=== PATIENT | male | born 1930 | race Caucasian/White ===

== ENCOUNTER 2018-08-30 06:05 | Inpatient (IN) ==
[~2018-08-30 06:05] MED LIST: ceFAZolin 1,000 MG, Sodium Chloride IRRigation 1,000 ML IR ONE
[2018-08-30] MEDS ORDERED: Ringers Solution, Lactated 1,000 ML IVC SCH (06:45)
[2018-08-30] MEDS ORDERED: LIDOCAINE 1% PF 2 ML AMPUL ONE (06:56)
[2018-08-30] MEDS ORDERED: Dexamethasone 4 MG/ML VIAL ONE ×2 (07:10→10:25)
[2018-08-30] MEDS ORDERED: *HR* Succinylcholine 200 MG/10 ML VIAL IVP ONE (07:10)
[2018-08-30] MEDS ORDERED: *HR* Rocuronium Bromide 50 MG/5 ML VIAL ONE (07:10)
[2018-08-30] MEDS ORDERED: Ondansetron 4 MG/2 ML VIAL ONE (07:10)
[2018-08-30] MEDS ORDERED: Lidocaine -MPF 2% 2 ML VIAL ONE (07:10)
[2018-08-30] MEDS ORDERED: *HR* Phenylephrine 10 MG/ML VIAL ONE (07:14)
[2018-08-30] MEDS ORDERED: *HR* Propofol 200 MG/20 ML VIAL IVP ONE (07:14)
[2018-08-30] MEDS ORDERED: *HR* Remifentanil 2 MG VIAL IVP ONE (07:14)
[2018-08-30] MEDS ORDERED: *HR* FentaNYL (PF) 100 MCG/2 ML VIAL ONE (07:14)
[2018-08-30] MEDS ORDERED: CeFAZolin Syr 2,000MG/20 ML 2,000 MG/20 ML SYRINGE IVPB ONE (07:15)
[2018-08-30] MEDS ORDERED: Isovue-300 150 ML INFUS..BTL IV ONE (07:20)
[2018-08-30] MEDS ORDERED: Heparin 1,000 UNITS/500 mL 2,000 ML ONE (07:20)
--- NOTE | 2018-08-30 07:27 | History & Physical Report ---
Date of Encounter: 08/30/18 Time of Encounter: 07:15 24 Hour HP Update - Instructions Instructions: If the History and Physical is less than 30 days old and was completed prior to A.M. admission and or procedure and has NOT been updated on calendar day of procedure please complete this update prior to performing procedure. - Update Patient reports changes in Medical Condition: No Changes in examination, assessment, or condition: No Changes in Medication: No Preop tests/diagnostics Reviewed: Yes Surgery Remains Indicated: Yes Consent for Planned Operative Procedure(s) Verified: Yes - Pre-Operative Checklist Preoperative Checklist Indicated: Yes Prophylactic Antibiotic Ordered: Yes Home Medications Include Beta Ileana: No Beta Ileana Taken Today (Day of Surgery): No Beta Ileana Taken Yesterday (Day Prior to Surgery): No Is VTE Prophylaxis Indicated?: Yes
[2018-08-30] MEDS ORDERED: Heparin 1,000 UNITS/500 mL 500 ML ONE (07:29)
[2018-08-30] MEDS ORDERED: *HR* Norepinephrine 4 MG/4 ML VIAL IVC ONE ×2 (07:45→07:47)
--- NOTE | 2018-08-30 07:51 | Anesthesia Evaluation PreOp ---
Date of Encounter: 08/30/18 Time of Encounter: 07:49 - Past History Planned Operation: ENDOVASCULAR AAA REPAIR Cardiac History: HTN, Hyperlipidemia, Arrhythmia (CHRONIC AFIB, COMPLETE HEART BLOCK, SSS), Cardiac Surgery (2011: AVR, CABG X3), Pacemaker/ICD (MEDTRONIC), Other PROGRAMMABLE LOGIC CONTROLLER ASSEMBLER History: Denies Any Significant HX Other Medical History: Renal (CKD, SINGLE KIDNEY, POST NEPHRECTOMY), Diabetes Type II, Thyroid Anesthesia History: No Prior Anesthetic Complications, Past Anesthesia Alcohol Use: none Drug use: none Medications and Allergies Levothyroxine Sodium [Tirosint] 125 mcg PO DAILY 03/16/16 [History] Warfarin [Coumadin] 3 mg PO TUTHSA 03/16/16 [History] Warfarin [Coumadin] 4 mg PO SUMOWEFR 03/16/16 [History] Ascorbic Acid [Vitamin C] 1 tab PO DAILY #30 tablet 04/08/16 [Rx] Cholecalciferol (D-3) [Vitamin D] 1,000 unit PO DAILY 06/14/17 [History] Multivitamin [Multivitamins] 1 each PO DAILY 06/14/17 [History] Ferrous Sulfate [Iron] 325 mg PO QPM 06/10/18 [History] Gabapentin [Neurontin] 100 mg PO HS 06/10/18 [History] Glimepiride [Amaryl] 1 mg PO QPM 06/10/18 [History] Acetaminophen [Tylenol] 500 mg PO Q6HR #42 tablet 06/14/18 [Rx] Ciprofloxacin [Cipro] 500 mg PO BID #14 tablet 06/14/18 [Rx] Tramadol HCl [Ultram] 50 mg PO TID PRN 7 Days #21 tab 06/14/18 [Rx] metroNIDAZOLE [Flagyl] 500 mg PO TID 7 Days #21 tablet 06/14/18 [Rx] 3 Allergy/AdvReac Type Severity Reaction Status Date / Time Oxycodone [From Percocet] Allergy Intermediate Itching Verified 08/30/18 07:36 Penicillins Allergy Intermediate Itching Verified 08/30/18 07:36 Sulfa (Sulfonamide Allergy Intermediate Itching Verified 08/30/18 07:36 Antibiotics) acetaminophen [From Percocet] Allergy See Verified 08/30/18 07:36 Comments - Meds/Allergy Pre-op Review Medications Reviewed: Yes (STOPPED COUMADIN 5 DAYS AGO, STARTED LOVENOX 10/8 PM) Allergies Reviewed: Yes Beta Blockers on Current Med List: No (NOT TAKING FOR 3 WEEKS PER BP IS NORMAL) Anesthesia Results - Labs Laboratory Last Values WBC 5.1 K/mcL (4.3-11.1) 08/23/18 11:10 RBC 4.11 M/mcL (4.19-5.50) L 08/23/18 11:10 Hgb 12.9 g/dL (12.9-16.9) 08/23/18 11:10 Hct 39.3 % (37.5-50.1) 08/23/18 11:10 MCV 95.6 fL (83.0-100.0) 08/23/18 11:10 MCH 31.4 pg (28.0-33.3) 08/23/18 11:10 MCHC 32.8 g/dL (31.6-35.5) 08/23/18 11:10 RDW 13.1 % (11.5-14.5) 08/23/18 11:10 Plt Count 187 K/mcL (140-400) 08/23/18 11:10 MPV 10.7 fL (9.4-12.4) 08/23/18 11:10 Immature Gran % 0.4 % (0-4) 08/23/18 11:10 Seg Neutrophils % 65.8 % 08/23/18 11:10 Lymphocytes % 20.5 % 08/23/18 11:10 Monocytes % 10.9 % 08/23/18 11:10 Eosinophils % 1.8 % 08/23/18 11:10 Basophils % 0.6 % 08/23/18 11:10 Neutrophils # 3.4 K/mcL (1.6-8.9) 08/23/18 11:10 Lymphocytes # 1.1 K/mcL (0.6-4.6) 08/23/18 11:10 Monocytes # 0.6 K/mcL (0.0-1.3) 08/23/18 11:10 Eosinophils # 0.1 K/mcL (0.0-0.6) 08/23/18 11:10 Basophils # 0.0 K/mcL (0.0-0.2) 08/23/18 11:10 PT 21.2 Seconds (9.4-12.1) H 08/23/18 11:10 INR 1.9 08/23/18 11:10 APTT 37.9 Seconds (26.0-36.0) H 08/23/18 11:10 Sodium 137 mEq/L (136-145) 08/23/18 11:10 Potassium 5.2 mEq/L (3.5-5.1) H 08/23/18 11:10 Chloride 104 mEq/L (98-107) 08/23/18 11:10 Carbon Dioxide 26 mEq/L (23-29) 08/23/18 11:10 BUN 27 mg/dL (8-23) H 08/23/18 11:10 Creatinine 1.32 mg/dL (0.70-1.30) H 08/23/18 11:10 Est GFR ( Amer) > 60 (> 60) 08/23/18 11:10 Est GFR (Non-Af Amer) 51 (> 60) L 08/23/18 11:10 BUN/Creatinine Ratio 20 (6-26) 08/23/18 11:10 Glucose 370 mg/dL (70-105) H 08/23/18 11:10 Est Mean Plasma Glucose 229 mg/dl 08/23/18 11:10 Hemoglobin A1c 9.6 % (-5.6) H 08/23/18 11:10 Calculated Osmolality 304 (280-300) H 08/23/18 11:10 Calcium 9.4 mg/dL (8.6-10.3) 08/23/18 11:10 Blood Type A POSITIVE 08/23/18 11:10 Antibody Screen NEGATIVE 08/23/18 11:10 Crossmatch See Detail 08/23/18 11:10 - Imaging Additional studies: STRESS TEST 08/11/2018: Perfusion study is negative for ischemia or infarct. Fixed mild mid-basal inferior perfusion defect with nomal wall motion is likely an artifact. Stress LVEF 67%. No ischemic stress ECG findings, ventricular pacing. No abnormal hemodynamic changes during stress test. Anesthesia Exam O2 Sat Height 1.68 m Height 1.68 m Height 1.68 m Weight 62.596 kg Weight 62.596 kg Weight 62.596 kg O2 Sat by Pulse Oximetry 98 O2 Sat by Pulse Oximetry 98 Vital Signs Temp Pulse Resp BP Pulse Ox 97.7 F 98 18 155/69 98 08/30/18 06:32 08/30/18 06:32 08/30/18 06:32 08/30/18 06:32 08/30/18 06:32 NPO (# of Hours): 8 - HEENT Mallampati: I Teeth: Normal Oral Opening: Greater than 3 - PROGRAMMABLE LOGIC CONTROLLER ASSEMBLER LOC: Oriented PROGRAMMABLE LOGIC CONTROLLER ASSEMBLER Motor: Normal RUE, Normal LUE, Normal RLE, Normal LLE, Normal Face - Cardiac Rhythm: Regular - Pulmonary Breath Sounds: bilateral Clear Respiratory Effort: Symmetrical Anesthesia Assess/Plan ASA Score: 4 Modified Florin Scale for Level of Consciousness: Cooperative, oriented, and tranquil Anesthetic Plan: General Autologous Blood: Yes Monitoring Plan: Standard Monitors, A-Line Recovery Plan: PACU Anes Supervising Prov Stmt: Indisys LIST NOT UPDATED THIS VISIT PATIENT'S CHART AND CURRENT MEDICATIONS REVIEWED CURRENT MEDICATIONS: Taking Levothyroxine Sodium 125 MCG Tablet, Si tablet on an empty stomach in the morning Orally Once a day Taking Metoprolol Succinate 50 MG Tablet Extended Release, Sig: Orally Taking Gabapentin 100 MG Capsule, Sig: Orally Three times a day Taking Glimepiride 1 MG Tablet, Si tablet with breakfast or the first main meal of the day Orally Once a day Taking Calcium 500 MG Tablet Chewable, Si tablet Orally Once a day Taking Iron 325 (65 Fe) MG Tablet, Si tablet Orally Once a day Taking Warfarin Sodium 3 MG Tablet, Si tablet Orally as directed Taking Multivitamin Men - Tablet, Sig: Orally daily Taking Terazosin HCl 1 MG Capsule, Si capsule Orally Once a day Taking Atorvastatin Calcium 40 MG Tablet, Si tablet Orally Once a day Taking GlipiZIDE 10 MG Tablet, Si tablet Orally Twice a day Patient informed and consented. Risks, benefits, and alternatives discussed. Patient wishes to proceed.
[2018-08-30] MEDS ORDERED: Lidocaine Jelly 6ml 1 APPL/6 ML JEL.PF.APP ONE (08:40)
[2018-08-30] MEDS ORDERED: *HR* Heparin 5,000 UNIT/ML VIAL ONE ×2 (09:11→10:26)
[2018-08-30] MEDS ORDERED: Acetaminophen IV 1,000 MG/100 ML INFUS..BTL IVPB ONE (10:10)
[2018-08-30] MEDS ORDERED: *HR* HYDROmorphone 2 MG TABLET PO PRN (10:10)
[2018-08-30] MEDS ORDERED: *HR* Promethazine 25 MG/ML VIAL IVP PRN (10:10)
[2018-08-30] MEDS ORDERED: *HR* Labetalol 20 MG/4 ML SYRINGE IVP PRN (10:10)
[2018-08-30] MEDS ORDERED: Ondansetron 4 MG/2 ML VIAL IVP ONE (10:10)
[2018-08-30] MEDS ORDERED: Neostigmine Methylsulfate 3 MG/3 ML SYRINGE ONE (10:53)
--- NOTE | 2018-08-30 11:05 | Operative Note ---
Date of procedure: 08/30/18 Pre-op diagnosis: AAA Post-op diagnosis: same Procedure: EVAR with Medtronic Endurant Stent Graft System Main body placed via right side which is a 28 x 14 x 103 mm device. The patient has a right extension limb of 16 x 13 x 93 mm. The left iliac limb is a 16 x 13 x 124 mm Bilateral open femoral exposure Complications: 0 Anesthesia: GETA Surgeon: Khoi Chang Co-Surgeon: En Castro Was there an pastry assistant present: No Estimated blood loss (cc): 150 Specimen: 0 Condition: stable Disposition: PACU Procedure in Detail: History Alcides Delacruz is an 88-year-old white male who has an known abdominal aortic aneurysm. This is been followed as an outpatient. Unfortunately the aneurysm has grown in size. It is increased significantly and now measures 5.6 cm. Potential treatment options were reviewed with the patient including expectant treatment versus elective endovascular therapy. The patient opted to proceed with endovascular therapy and he now comes to the operating room today for treatment of his aneurysm. Procedure After informed consent was obtained the patient was taken to the operating room. General endotracheal anesthesia was established under arterial line pressure monitoring. The abdomen groin and upper thighs were sterilely prepped and draped. A timeout protocol was observed. Bilateral open femoral exposures were then performed. A 2 team surgical approach was necessary for this procedure. The patient required 2 team approach due to his multiple comorbidities including his advanced age. In an attempt to try to reduce his anesthetic time and blood loss at 2 team approach was indicated. After controls obtained of the femoral vessels they were punctured with an 18- gauge needle and a retrograde orientation. A guidewire was then inserted and advanced into the proximal thoracic aorta. On the right side the wire was exchanged over for an Amplatz wire. The marker pigtail catheter was then placed up the left side. An aortogram was performed demonstrating the right renal artery. The patient is status post a left nephrectomy. An endovascular stent graft was selected that measured 28 x 14 x 103 mm. This was deployed via the right side with a suprarenal stent. Careful attention was paid so that the orifice of the right renal artery is not compromised with this device. After the device was deployed to the point that the docking gate was opened the wire was manipulated and with a catheter was then placed into the main body from the left groin. Appropriate positioning was confirmed with the use of a marker pigtail catheter. An angiogram was then performed of the left iliac system. The left limb was 16 x 13 x 124 mm stent graft. This was then deployed. The device was re-moved and a 11-Sinhala sheath was placed. Attention was directed back to the right side. The right sided graft was then deployed to its full extent. The top cap was then reengaged and that was removed. A sheath was then placed into the right groin and an angiogram performed of the right iliac system. After measurements made a right limb was selected that was 16 x 13 x 93 mm. This was then deployed. The carrier device was then removed and then sheath was reinserted. A Reliant balloon was then inserted into the graft from both sides and then was gently inflated so that the stent graft could be fully deployed and opposed to the wall of the vessel. After this was done a marker pigtail catheter was reinserted. A completion aortogram was performed. As demonstrated appropriate position of the stent graft. Preservation of the right renal artery as well as bilateral iliac bifurcations was demonstrated. There was a type II endoleak identified which appeared to be originating from the branches of the internal iliac artery on the right side with retrograde filling into the residual aneurysm sac. With no findings of type I or type III endoleak the sheaths were then removed. The femoral puncture sites were repaired with 6-0 Prolene. After appropriate backbleeding and flushing the clamps removed and pulsatile flow was restored in both lower extremities. Patient had no hemodynamic distress with this maneuver. The wounds were then irrigated. Hemostasis was achieved. Wounds were then closed in layers using absorbable suture. Marcaine was infiltrated into the wounds bilaterally prior to closure for local anesthetic. Dry sterile dressings were applied. The patient was then extubated in the operating room. He was taken from the operating room to the recovery room in stable condition. There were no intraoperative complications.
--- NOTE | 2018-08-30 11:45 | Operative Note ---
Date of procedure: 08/30/18 Pre-op diagnosis: Abdominal aortic aneurysm Post-op diagnosis: same Procedure: 1. Endograft repair of abdominal aortic aneurysm with Medtronic bifurcated modular graft including 1 docking limb on the left and one extension limb on the right. 2. Right femoral vessel exposure for endograft placement. 3. Left femoral vessel exposure for endograft placement. Complications: None Anesthesia: GETA Surgeon: En Castro Co-Surgeon: Khoi Chang Was there an state tested nursing assistant present: No Estimated blood loss (cc): 100 Specimen: None Condition: stable Disposition: PACU Procedure in Detail: Indications: The patient is an 88-year-old male with a 5.6cm abdominal aortic aneurysm. His anatomy was appropriate for endograft repair. Repair was recommended to reduce his risk of rupture. Procedure: The patient was taken to the operating room and placed in supine position on the operating room table. After the induction of general endotracheal anesthesia, she was cleaned and draped in normal sterile fashion. A two surgeon approach was utilized for this procedure in order to minimize anesthetic time and the risks for complications due to the patients comorbid conditions. In addition, a two surgeon approach was used for intraoperative decision making. Oblique incisions were made over both groins sharply. Hemostasis was obtained with electrocautery. Using blunt and sharp and electrocautery dissection, the bilateral common, deep and superficial femoral arteries were dissected circumferentially and surrounded with Vessel loops. At this point, the patient received heparin intravenously and then bilateral femoral punctures with large- bore needles were performed. J wires were advanced into the aorta under fluoroscopic view. The right wire initially would not advance into the aorta. Therefore a amy catheter and glidewire were used. Given the anatomy, the main body was selected to be the right side in this patient. The needles were exchanged for bilateral sheaths and a long Pigtail catheter was advanced over the right wire into the aortic arch. The angiogram revealed that the left iliac vessels were appropriate for endograft placement. The wire was removed and an angiogram was then performed via a pigtail catheter for sizing of the graft. The wire was replaced with a stiff wire. The catheter was removed and repositioned in the suprarenal aorta via the left femoral artery. The main body was inserted over the stiff wire with the contralateral limb being in the ipsilateral position. An aortogram was then performed at the level of the renal artery. The graft was positioned just inferior to the renal arteries and the first 2 segments were deployed. Again an aortogram revealed adequate infrarenal placement. The graft was then further opened to the contralateral limb exposed. A final angiogram was performed confirming adequate infrarenal placement. The suprarenal stent was deployed in the usual fashion. The contralateral limb was then selected with a wire using a guiding catheter. Intragraft placement of the wire was confirmed by placing the pigtail and spinning it freely. An oblique view of the left pelvis was performed with contrast to size the left extension limb. The sheath was removed and exchanged for the appropriate limb, which was advanced under fluoroscopic view and positioned. It was then expanded. The introducer and graft sheath were exchanged for a sheath. The risks of the main body was deployed. The top cap was retrieved. The introducer was removed and exchanged for a sheath. Oblique view of the right pelvis was then performed to determine the extension limb sizing. The appropriate limb was selected and deployed under fluoroscopic view. The introducer and graft sheath was removed and exchanged for a sheath. A Reliant balloon was then advanced into the graft proximal and distal endpoints as well as overlap were expanded with gentle pressure. A flush completion angiogram revealed no evidence of an endoleak. Further imaging of the right femoral vessels revealed no evidience of stenosis. Tension was applied to the Vessel loops in the groins. The sheaths and wires were then removed. The bilateral arteriotomies were repaired with a running 6-0 Prolene. Antibiotic irrigation was infused into the groin. The bilateral groins incisions were closed with 2-0 Vicryl, 3-0 Vicryl and 4-0 Vicryl. Sterile dressings were applied. The patient was then extubated and taken to the recovery room in stable condition. Main body: 28 x 14 x 103 mm Right extension limb: 16 x 13 x 93 mm Left iliac docking limb: 16 x 13 x 124 mm
[2018-08-30] MEDS ORDERED: Ondansetron 4 MG/2 ML VIAL IVP PRN (11:58)
[2018-08-30] MEDS ORDERED: Acetaminophen 325 MG TABLET PO PRN (11:58)
[2018-08-30] MEDS ORDERED: Naloxone 0.4 MG/ML INJ IVP PRN (11:58)
--- NOTE | 2018-08-30 11:58 | Anesthesia Evaluation Post Op ---
Date of Encounter: 08/30/18 Time of Encounter: 11:57 - Discharge PostOp Status: Transfer Patient to floor (Patient's vital signs have been reviewed. Patient is stable postoperatively and has adequately recovered from anesthesia. Patient is determined to have stable airway patency and respiratory function including respiratory rate and oxygen saturation. Patient has a stable heart rate, blood pressure and adequate hydration. Patients mental status is acceptable. Patients temperature is appropriate. Pain and nausea are adequately controlled.)
[2018-08-30] MEDS ORDERED: D5% in Water 1,000 ML IVC PRN (17:13)
[2018-08-30] MEDS ORDERED: Dextrose Gel 15 GM/37.5 ML TUBE PO PRN ×2 (17:13)
[2018-08-30] MEDS ORDERED: *HR* Dextrose 50 % in Water (Syg) 50 ML SYRINGE IVP PRN (17:13)
[2018-08-30] MEDS ORDERED: 0.9 % Sodium Chloride 1,000 ML IVC SCH (18:15)
[2018-08-30] MEDS: Insulin LISPRO 300 UNITS/3 ML VIAL SQ SCH ×2 (18:19→20:27)
[2018-08-30] MEDS ORDERED: 0.9 % Sodium Chloride 1,000 ML ONE (18:25)
[2018-08-31] MEDS: Gabapentin 100 MG CAPSULE PO PRN ×2 (01:21→20:45)
[2018-08-31 06:14] LABS: Basophils % 0.1 %; Eosinophils % 0.4 %; Hematocrit 24.8 % (37.5-50.1); Hemoglobin 8.4 g/dL (12.9-16.9); Immature Granulocytes % 0.3 % (0-4); Lymphocytes # 1.7 K/mcL (0.6-4.6); Lymphocytes % 17.4 %; Mean Corpuscular HGB Conc 33.9 g/dL (31.6-35.5); Mean Corpuscular Hemoglobin 31.7 pg (28.0-33.3); Mean Corpuscular Volume 93.6 fL (83.0-100.0); Mean Platelet Volume 10.7 fL (9.4-12.4); Monocytes # 0.5 K/mcL (0.0-1.3); Monocytes % 5.5 %; Neutrophils # 7.5 K/mcL (1.6-8.9); Platelet Count 152 K/mcL (140-400); Red Blood Count 2.65 M/mcL (4.19-5.50); Red Cell Distribution Width 12.8 % (11.5-14.5); Segmented Neutrophils % 76.3 %
[2018-08-31 06:18] LABS: Calcium 7.9 mg/dL (8.6-10.3); Potassium 4.1 mEq/L (3.5-5.1)
[2018-08-31] MEDS: Multivit/Ca/Min/Fe/FA 1 TAB TABLET PO SCH (07:59)
[2018-08-31] MEDS: Ascorbic Acid 500 MG TABLET PO SCH (07:59)
[2018-08-31] MEDS: Cholecalciferol (D-3) 1,000 UNIT TABLET PO SCH (07:59)
[2018-08-31] MEDS: *HR* HYDROcodone/Acet 5/325 mg TABLET PO PRN ×2 (07:59→16:48)
[2018-08-31] MEDS: Insulin LISPRO 300 UNITS/3 ML VIAL SQ SCH ×4 (08:05→20:41)
--- NOTE | 2018-08-31 11:55 | Physician Discharge Referral ---
ExtendedCare Referral Info Transfer To: F Provider in Charge: Dr. Chang Provider in Charge after Transfer: PCP Institutional Level of Care: Intermediate Expected Duration of Placement: 1-2 weeks Prognosis: Good Aware of Diagnosis: Patient, Family Aware of Prognosis: Patient, Family - Transfer Medications Home Medications: Levothyroxine Sodium [Tirosint] 125 mcg PO DAILY 03/16/16 [History] Cholecalciferol (D-3) [Vitamin D] 1,000 unit PO DAILY 06/14/17 [History] Multivitamin [Multivitamins] 1 each PO DAILY 06/14/17 [History] Ferrous Sulfate [Iron] 325 mg PO QPM 06/10/18 [History] Gabapentin [Neurontin] 100 mg PO HS PRN 06/10/18 [History] Ascorbic Acid [Vitamin C] 250 tab PO DAILY 08/30/18 [History] Atorvastatin Calcium [Lipitor] 40 mg PO DAILY 08/30/18 [History] Enoxaparin [Lovenox] 100 mg SQ DAILY PRN 08/30/18 [History] Metoprolol [Lopressor] 12.5 mg PO BID 08/30/18 [History] Terazosin [Hytrin] 1 mg PO HS 08/30/18 [History] Warfarin [Coumadin] 3 mg PO TUTHSA 08/30/18 [History] Warfarin [Coumadin] 4 mg PO SUMOWEFR 08/30/18 [History] Allergies/Adverse Reactions: 3 Allergy/AdvReac Type Severity Reaction Status Date / Time Oxycodone [From Percocet] Allergy Intermediate Itching Verified 08/30/18 07:36 Penicillins Allergy Intermediate Itching Verified 08/30/18 07:36 Sulfa (Sulfonamide Allergy Intermediate Itching Verified 08/30/18 07:36 Antibiotics) acetaminophen [From Percocet] Allergy See Verified 08/30/18 07:36 Comments - Respiratory Orders Smoking Cessation: Smoking cessation has been advised. For more information, call the [place] Tobacco Quit Line at 5-064-WMDE-NOW. - Ancillary Orders May use pressure relief devices daily prn - Advance Directives Code Status: Full Code - Mobility Orders Ambulate - Rehabiliation Orders Rehab Potential: Good Rehab Orders: Evaluation for Physical Therapy, Evaluation for Occupational Therapy CERTIFICATION: I certify that the transfer of the above named patient to an Extended Care Facility is necessary for the continuing treatment of the diagnosis listed. The above information is true and accurate reflection of patient's current condition. Confidential - Redisclosure prohibited without a patient's written consent.
--- NOTE | 2018-08-31 12:39 | Vascular/[facility] Progress Note ---
Date of Encounter: 08/31/18 Time of Encounter: 12:36 - Assessment and plan (1) AAA (abdominal aortic aneurysm) Current Visit: Yes Status: Chronic Postoperative day #1 following successful endovascular repair of abdominal aortic aneurysm. Patient seemed in medically stable. Atrial fibrillation remains controlled medically. Qualifiers: Presence of rupture: without rupture Qualified Code(s): I71.4 - Abdominal aortic aneurysm, without rupture (2) Hematuria Current Visit: Yes Status: Acute Patient has hematuria following Mclean insertion yesterday for surgery. We will request a urology consultation for recommendation and management. Qualifiers: Hematuria type: gross Qualified Code(s): R31.0 - Gross hematuria (3) A-fib Current Visit: No Status: Chronic Patient has chronic atrial fibrillation. Anticoagulation has been held since last week. Qualifiers: Atrial fibrillation type: chronic Qualified Code(s): I48.2 - Chronic atrial fibrillation - Subjective Interval history: Patient is postoperative day #1 following endovascular repair of abdominal aortic aneurysm. Patient underwent uneventful night. Patient did develop gross hematuria yesterday afternoon following surgery. The patient did have difficulty passing his Mclean catheter and has a history of prostatic hypertrophy as well as hesitancy and nocturia. Because of the history of atrial fibrillation and the need for future resumption of his anticoagulation will request urology to see the patient today for recommendations regarding Mclean catheter management. Vital Signs, Last 4 Hours Temp Pulse Resp BP Pulse Ox 08/31/18 12:02 98.6 F 80 18 98/46 95 - Physical Examination General: Present: Conversant, No Apparent Distress Neck: Absent: JVD Cardiac: Present: Irregular Rhythm Lungs: Present: Normal Breath Sounds Neuro: Present: Alert and responsive, No focal deficits noted Vascular: Present: Normal capillary refill, Surgical incisions (Bilateral groin incision dressings are clean and dry.) Abdomen: Present: Soft, Non-tender. Absent: Masses Skin: Present: No rashes noted on visualized skin Results 08/31/18 05:30 08/31/18 05:30 Lab Results, Last 24 hours 08/31/18 08/31/18 05:30 05:30 WBC 9.9 Hgb 8.4 L Hct 24.8 L Plt Count 152 Sodium 136 Potassium 4.1 Chloride 108 H Carbon Dioxide 23 BUN 30 H Creatinine 1.49 H Glucose 270 H Calcium 7.9 L Consult Discharge Plan - Plan [facility]Primary Care Provider[facility] - 09/09/18 11:00 am Khoi Chang MD [Partnered Physician] - 09/28/18 1:30 pm
[2018-08-31] MEDS ORDERED: Lidocaine Jelly 6ml 1 APPL/6 ML JEL.PF.APP MM ONE (12:41)
--- NOTE | 2018-08-31 13:31 | Urology - Consult Note ---
<Kandy Forte N - Last Filed: 08/31/18 13:27> Date of Encounter: 08/31/18 Time of Encounter: 12:30 - Assessment and Plan (1) Hematuria Current Visit: Yes Status: Acute Assessment and plan: Patient is an 88-year-old male who presents with history of gross hematuria following traumatic catheter placement and anticoagulation. Patient is one day status post abdominal aortic aneurysm repair. A 22-[place]orese 3-way catheter was placed without difficulty. Continuous bladder irrigation was initiated. Hand irrigation with clot evacuation was performed at bedside. At the conclusion of irrigation, urine was noted to be transparent pink lemonade and draining sufficiently into bedside bag. Holding anticoagulation would be best for clearing the bladder if the patient is able to do so. Urology will continue to follow. Qualifiers: Hematuria type: gross Qualified Code(s): R31.0 - Gross hematuria Urology CN:HPI Consult date: 08/31/18 Reason for consult Urology: Gross Hematuria History of present illness: Patient is an 88-year-old male who presents one day postoperatively from an abdominal aortic aneurysm repair with gross hematuria. Patient states he knows he has an enlarged prostate. Grossly bloody urine was noted shortly after catheter placement. Upon examination, opaque, fruit punch urine was noted in the tubing along with multiple clots. Patient admits to feeling of obstruction with initial catheter placement. Two options were discussed with patient regarding catheter management including observation with current catheter versus replacing current catheter with a three-way hematuria catheter for irrigation. Patient was informed that current catheter may not be the most efficient and evacuating clots from the bladder. Ultimately, the patient agreed to proceed with replacing current catheter with a three-way catheter. Past Med Surg Social Fam HX - Past Medical History Medical history: aortic aneurysm, atrial fibrillation, cancer, diabetes, hypertension, renal disease, thyroid disease Additional medical history: skin cancer Psychiatric history: no psych history - Past Surgical History Surgical History: appendectomy, tonsilectomy Additional surgical history: kidney removal. open heart surgery. left ear surgery. prostate surgery - Social History Smoking Status: Never smoker Smokeless Tobacco Status: No Alcohol use: none Drug use: none Medications and Allergies Levothyroxine Sodium [Tirosint] 125 mcg PO DAILY 03/16/16 [History] Cholecalciferol (D-3) [Vitamin D] 1,000 unit PO DAILY 06/14/17 [History] Multivitamin [Multivitamins] 1 each PO DAILY 06/14/17 [History] Ferrous Sulfate [Iron] 325 mg PO QPM 06/10/18 [History] Gabapentin [Neurontin] 100 mg PO HS PRN 06/10/18 [History] Ascorbic Acid [Vitamin C] 250 tab PO DAILY 08/30/18 [History] Atorvastatin Calcium [Lipitor] 40 mg PO DAILY 08/30/18 [History] Enoxaparin [Lovenox] 100 mg SQ DAILY PRN 08/30/18 [History] Metoprolol [Lopressor] 12.5 mg PO BID 08/30/18 [History] Terazosin [Hytrin] 1 mg PO HS 08/30/18 [History] Warfarin [Coumadin] 3 mg PO TUTHSA 08/30/18 [History] Warfarin [Coumadin] 4 mg PO SUMOWEFR 08/30/18 [History] 3 Allergy/AdvReac Type Severity Reaction Status Date / Time Oxycodone [From Percocet] Allergy Intermediate Itching Verified 08/30/18 07:36 Penicillins Allergy Intermediate Itching Verified 08/30/18 07:36 Sulfa (Sulfonamide Allergy Intermediate Itching Verified 08/30/18 07:36 Antibiotics) acetaminophen [From Percocet] Allergy See Verified 08/30/18 07:36 Comments Review of Systems - Constitutional fatigue, no chills, no fever(s) - EENT Nose, mouth and throat: no dizziness, no headache(s) - Cardiovascular no chest pain, no dyspnea, no edema - Respiratory no cough, no dyspnea - Gastrointestinal no abdominal pain, no nausea, no vomiting - Genitourinary difficulty urinating, hematuria, urinary hesitancy, no flank pain, no testicular pain, no urinary frequency, no urinary incontinence, no urinary urgency - Musculoskeletal no back pain, no muscle weakness - Integumentary no erythema, no rash, no swelling - Neurological no confusion, no syncope - Psychiatric no anxiety - Hematologic/Lymphatic easy bleeding, easy bruising - Allergic/Immunologic no throat swelling, no wheezing Exam Initial Vital Signs Temp Pulse Resp BP Pulse Ox 97.7 F 98 18 155/69 98 08/30/18 06:32 08/30/18 06:32 08/30/18 06:32 08/30/18 06:32 08/30/18 06:32 - General physical appearance Present: well developed, no distress, no pain - Eyes Present: PERRL, normal ocular movement - ENT Present: normal nares, no hearing loss, no congestion - Neck Present: no masses, trachea midline - Respiratory Present: normal respiratory effort - Cardiovascular Cardiovascular exam IM: RRR - Abdomen Abdomen: Present: soft, non tender. Absent: distended - Genitourinary normal penis with no external lesions Penis: Present: edema, circumsized Urethral meatis: Present: patent Testicles: Present: normal size - Integumentary Present: no rash, no abnormal pigmentation - Neurologic Present: normal coordination - Musculoskeletal Present: other (normal posture ) Urology Results - Labs 08/31/18 05:30 08/31/18 05:30 Abnormal lab results RBC 2.65 M/mcL (4.19-5.50) L 08/31/18 05:30 Hgb 8.4 g/dL (12.9-16.9) L 08/31/18 05:30 Hct 24.8 % (37.5-50.1) L 08/31/18 05:30 Chloride 108 mEq/L (98-107) H 08/31/18 05:30 BUN 30 mg/dL (8-23) H 08/31/18 05:30 Creatinine 1.49 mg/dL (0.70-1.30) H 08/31/18 05:30 Est GFR ( Amer) 54 (> 60) L 08/31/18 05:30 Est GFR (Non-Af Amer) 45 (> 60) L 08/31/18 05:30 Glucose 270 mg/dL (70-105) H 08/31/18 05:30 POC Glucose 391 mg/dL (70-99) H 08/30/18 20:12 Calcium 7.9 mg/dL (8.6-10.3) L 08/31/18 05:30 Diabetes panel 08/31/18 Range/Units 05:30 Sodium 136 (136-145) mEq/L Potassium 4.1 (3.5-5.1) mEq/L Chloride 108 H (98-107) mEq/L Carbon Dioxide 23 (23-29) mEq/L BUN 30 H (8-23) mg/dL Creatinine 1.49 H (0.70-1.30) mg/dL Glucose 270 H (70-105) mg/dL Calcium 7.9 L (8.6-10.3) mg/dL Calcium panel 08/31/18 Range/Units 05:30 Calcium 7.9 L (8.6-10.3) mg/dL Pituitary panel 08/31/18 Range/Units 05:30 Sodium 136 (136-145) mEq/L Potassium 4.1 (3.5-5.1) mEq/L Chloride 108 H (98-107) mEq/L Carbon Dioxide 23 (23-29) mEq/L BUN 30 H (8-23) mg/dL Creatinine 1.49 H (0.70-1.30) mg/dL Glucose 270 H (70-105) mg/dL Calcium 7.9 L (8.6-10.3) mg/dL Adrenal panel 08/31/18 Range/Units 05:30 Sodium 136 (136-145) mEq/L Potassium 4.1 (3.5-5.1) mEq/L Chloride 108 H (98-107) mEq/L Carbon Dioxide 23 (23-29) mEq/L BUN 30 H (8-23) mg/dL Creatinine 1.49 H (0.70-1.30) mg/dL Glucose 270 H (70-105) mg/dL Calcium 7.9 L (8.6-10.3) mg/dL All other labs normal. Procedures:Urology - Bladder Irrigation/Clot Evacuation Consent obtained: verbal consent Time out performed: No Irrigation: saline Amount of Clot: large Patient tolerated procedure: well Continuous Bladder Irrigation: Yes Complications: none - Catheter Insertion (Urinary) Prophylactic antibiotics given: No Bladder Scan/Ultrasound used before catheterization: No Estimated amount of urin (mLs): 300 Preparation: Povidone-Iodine Type of catheter inserted: 3 way, silastic Catheter [place] Size: 22 Topical anesthesia used: No Results: successfully catheterized-immediate flow Urine Appearance: Hematuria, Large Blood Clots Patient tolerated procedure: well, no complications Complications: none Consult Discharge Plan - Plan [facility]errals: [facility] [Primary Care Provider[facility] - 09/09/18 11:00 am Khoi Chang MD [Partnered Physician] - 09/14/18 1:30 pm <Khoi Merlos - Last Filed: 08/31/18 15:57> Date of Encounter: 08/31/18 - Assessment and Plan (1) Hematuria Current Visit: Yes Status: Acute Assessment and plan: Patient seen and examined with PA. I personally placed a 22-[place] hematuria catheter. I irrigated at least 100 mL of blackish clot. Urine was much clearer after. I suspect gross hematuria and clot retention from catheter trauma and anticoagulation. Hold anticoagulation if possible. Continue CBI. Will follow patient closely. Qualifiers: Hematuria type: gross Qualified Code(s): R31.0 - Gross hematuria Exam Initial Vital Signs Temp Pulse Resp BP Pulse Ox 97.7 F 98 18 155/69 98 08/30/18 06:32 08/30/18 06:32 08/30/18 06:32 08/30/18 06:32 08/30/18 06:32 Urology Results - Labs 08/31/18 05:30 08/31/18 05:30 Abnormal lab results RBC 2.65 M/mcL (4.19-5.50) L 08/31/18 05:30 Hgb 8.4 g/dL (12.9-16.9) L 08/31/18 05:30 Hct 24.8 % (37.5-50.1) L 08/31/18 05:30 Chloride 108 mEq/L (98-107) H 08/31/18 05:30 BUN 30 mg/dL (8-23) H 08/31/18 05:30 Creatinine 1.49 mg/dL (0.70-1.30) H 08/31/18 05:30 Est GFR ( Amer) 54 (> 60) L 08/31/18 05:30 Est GFR (Non-Af Amer) 45 (> 60) L 08/31/18 05:30 Glucose 270 mg/dL (70-105) H 08/31/18 05:30 POC Glucose 391 mg/dL (70-99) H 08/30/18 20:12 Calcium 7.9 mg/dL (8.6-10.3) L 08/31/18 05:30 Diabetes panel 08/31/18 Range/Units 05:30 Sodium 136 (136-145) mEq/L Potassium 4.1 (3.5-5.1) mEq/L Chloride 108 H (98-107) mEq/L Carbon Dioxide 23 (23-29) mEq/L BUN 30 H (8-23) mg/dL Creatinine 1.49 H (0.70-1.30) mg/dL Glucose 270 H (70-105) mg/dL Calcium 7.9 L (8.6-10.3) mg/dL Calcium panel 08/31/18 Range/Units 05:30 Calcium 7.9 L (8.6-10.3) mg/dL Pituitary panel 08/31/18 Range/Units 05:30 Sodium 136 (136-145) mEq/L Potassium 4.1 (3.5-5.1) mEq/L Chloride 108 H (98-107) mEq/L Carbon Dioxide 23 (23-29) mEq/L BUN 30 H (8-23) mg/dL Creatinine 1.49 H (0.70-1.30) mg/dL Glucose 270 H (70-105) mg/dL Calcium 7.9 L (8.6-10.3) mg/dL Adrenal panel 08/31/18 Range/Units 05:30 Sodium 136 (136-145) mEq/L Potassium 4.1 (3.5-5.1) mEq/L Chloride 108 H (98-107) mEq/L Carbon Dioxide 23 (23-29) mEq/L BUN 30 H (8-23) mg/dL Creatinine 1.49 H (0.70-1.30) mg/dL Glucose 270 H (70-105) mg/dL Calcium 7.9 L (8.6-10.3) mg/dL All other labs normal.
--- NOTE | 2018-08-31 18:36 | Event Note ---
Date of Encounter: 08/31/18 Time of Encounter: 17:[address] Merlos's consultation regarding hematuria. Patient is now receiving bladder irrigations through three-way Mclean. Color and consistency of the urine is much improved. Due to the hematuria the patient's Lovenox and Coumadin should not be restarted until the hematuria has resolved. This was discussed with the patient. Anticipate patient will be transferred to extended care facility later this week with Mclean and leg bag. Resume Lovenox and Coumadin therapy once urologic issue is resolved with absence of hematuria.
--- NOTE | 2018-08-31 18:41 | Discharge Summary ---
<Khoi Chang - Last Filed: 08/31/18 18:38> Orders not resulted at time of discharge: Pending orders 08/29/18 10:32 Red Blood Cells [BBK] Routine 08/30/18 XR KUB [XR] Routine 09/01/18 04:00 BMP [Basic Metabolic Panel] AM 0400 CBC no Diff [Complete Blood Count w/o Diff] [HEME] AM 0400 Date of Encounter: 08/31/18 Time of Encounter: 17:00 - Discharge Diagnosis (1) Hematuria Priority: Secondary Status: Acute Comments: Patient had traumatic Mclean insertion at time of operation. Urologic consultation was obtained from Dr. Merlos regarding gross hematuria. Three-way irrigating catheter was placed on 08/31/2018 with initiation of bladder irrigation. Anticipate patient will require Mclean catheter and leg bag upon transfer to [facility]. Qualifiers: Hematuria type: gross Qualified Code(s): R31.0 - Gross hematuria (2) AAA (abdominal aortic aneurysm) Priority: Primary Status: Chronic Comments: Patient underwent endovascular repair of abdominal aortic aneurysm. Qualifiers: Presence of rupture: without rupture Qualified Code(s): I71.4 - Abdominal aortic aneurysm, without rupture (3) Type 2 diabetes mellitus Priority: Secondary Status: Chronic Comments: Patient has history of type 2 diabetes. 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 Patient is on chronic anticoagulation therapy with Coumadin. This will be temporarily held as will the bridging therapy with Lovenox until the hematuria is resolved and then anticoagulation may be resumed. Qualifiers: Atrial fibrillation type: chronic Qualified Code(s): I48.2 - Chronic atrial fibrillation - Hospital Course Hospital course: Mr. Delacruz is a 88 year old male With an expanding but asymptomatic abdominal aortic aneurysm. After a full review of options and treatments the patient wished to proceed with therapy for the aneurysm. Therefore an endovascular repair was performed on August 30, 2018. The patient had no intraoperative complications. Postoperatively he was found to develop gross hematuria. Urologic consultation was obtained on August 31, 2018. A three-way irrigating catheter was then inserted and bladder irrigations were instituted that afternoon. Due to the patient's age and associated comorbidities placement to an extended care facility was recommended after evaluation by occupational therapy and physical therapy. - Time Spent with Patient Total time spent providing and/or coordinating discharge services: - Discharge Medications Home Medications: Levothyroxine Sodium [Tirosint] 125 mcg PO DAILY 03/16/16 [History] Cholecalciferol (D-3) [Vitamin D] 1,000 unit PO DAILY 06/14/17 [History] Multivitamin [Multivitamins] 1 each PO DAILY 06/14/17 [History] Ferrous Sulfate [Iron] 325 mg PO QPM 06/10/18 [History] Gabapentin [Neurontin] 100 mg PO HS PRN 06/10/18 [History] Ascorbic Acid [Vitamin C] 250 tab PO DAILY 08/30/18 [History] Atorvastatin Calcium [Lipitor] 40 mg PO DAILY 08/30/18 [History] Enoxaparin [Lovenox] 100 mg SQ DAILY PRN 08/30/18 [History] Metoprolol [Lopressor] 12.5 mg PO BID 08/30/18 [History] Terazosin [Hytrin] 1 mg PO HS 08/30/18 [History] Warfarin [Coumadin] 3 mg PO TUTHSA 08/30/18 [History] Warfarin [Coumadin] 4 mg PO SUMOWEFR 08/30/18 [History] Allergies/Adverse Reactions: 3 Allergy/AdvReac Type Severity Reaction Status Date / Time Oxycodone [From Percocet] Allergy Intermediate Itching Verified 08/30/18 07:36 Penicillins Allergy Intermediate Itching Verified 08/30/18 07:36 Sulfa (Sulfonamide Allergy Intermediate Itching Verified 08/30/18 07:36 Antibiotics) acetaminophen [From Percocet] Allergy See Verified 08/30/18 07:36 Comments Date of admission: 08/30/18 11:55 [facility] care physician: [facility] Consults: 08/30/18 12:12 Consult to Learning Support Assistant [CONS] Routine Reason for SW Consult: d/c planning 08/31/18 07:28 Consult to Occupational Therapy [CONS] Routine Comment: Evaluate, develop and implement POC Reason for Consult: d/c planning, possible rehab placement Does patient have active BEDREST order?: No Is patient medically & hemodynamically stable?: Yes Patient assessed for mobility or mobilized this visit?: No Consult to Physical Therapy [CONS] Routine Comment: Evaluate, develop and implement POC Reason for Consult: d/c planning, possible placement Does patient have active BEDREST order?: No Is patient medically & hemodynamically stable?: Yes Patient assessed for mobility or mobilized this visit?: No 08/31/18 12:33 Consult to Urology [CONS] Routine Consulting Provider: Urology Gilma Reason for Consult: hematuria/BPH Time Notified: 12:34 Call Completed: Yes Procedure(s) Performed: Endovascular repair of abdominal aortic aneurysm Exam Vital Signs, Last 4 Hours Temp Pulse Resp BP Pulse Ox 08/31/18 15:35 98.4 F 77 18 103/87 95 - Patient Status Disposition: Transfer Inpatient Rehab Fac Condition: Good Overall status at discharge: patient is progressing back to baseline - Discharge Instructions Follow Up With: JUAN,PCP [Primary Care Provider] - 09/09/18 11:00 am Khoi Merlos MD [Partnered Physician] - 09/09/18 1:30 pm Khoi Chang MD [Partnered Physician] - 09/14/18 1:30 pm - Diet and Activity Activity: as per physical therapy, increase activity as tolerated Diet: diabetic diet <En Castro - Last Filed: 09/02/18 11:46> Orders not resulted at time of discharge: Pending orders 08/29/18 10:32 Red Blood Cells [BBK] Routine 08/30/18 XR KUB [XR] Routine Date of Encounter: 09/02/18 Time of Encounter: 10:50 - Discharge Diagnosis (1) AAA (abdominal aortic aneurysm) Status: Chronic Comments: The patient is postoperative day #3 after endograft repair of an abdominal aortic aneurysm. Patient is healing well. He is tolerating a diet. His incisions are healing well. He is without complaints. He will be discharged today. Qualifiers: Presence of rupture: without rupture Qualified Code(s): I71.4 - Abdominal aortic aneurysm, without rupture (2) Chronic anemia Status: Chronic (3) Hematuria Priority: Secondary Status: Acute Comments: Hematuria has resolved today. The patient will be discharged with his Mclean catheter in place. He will follow-up with urology as an outpatient. Qualifiers: Hematuria type: gross Qualified Code(s): R31.0 - Gross hematuria (4) CKD (chronic kidney disease), stage III Status: Chronic (5) Type 2 diabetes mellitus Status: Chronic Qualifiers: Diabetes mellitus fci insulin use: without rubber production machine operator use Diabetes mellitus complication status: without complication Qualified Code(s): E11.9 - Type 2 diabetes mellitus without complications (6) CAD (coronary artery disease) Status: Acute Qualifiers: Coronary Disease-Associated Artery/Lesion type: platinum artery Three Affiliated vs. transplanted heart: platinum heart Associated angina: without angina Qualified Code(s): I25.10 - Atherosclerotic heart disease of platinum coronary artery without angina pectoris - Hospital Course Hospital course: Mr. Delacruz is a 88 year old male - Time Spent with Patient Total time spent providing and/or coordinating discharge services: Date of admission: 08/30/18 11:55 Primary care physician: [facility] Consults: 08/30/18 12:12 Consult to Learning Support Assistant [CONS] Routine Reason for SW Consult: d/c planning 08/31/18 07:28 Consult to Occupational Therapy [CONS] Routine Comment: Evaluate, develop and implement POC Reason for Consult: d/c planning, possible rehab placement Does patient have active BEDREST order?: No Is patient medically & hemodynamically stable?: Yes Patient assessed for mobility or mobilized this visit?: No Consult to Physical Therapy [CONS] Routine Comment: Evaluate, develop and implement POC Reason for Consult: d/c planning, possible placement Does patient have active BEDREST order?: No Is patient medically & hemodynamically stable?: Yes Patient assessed for mobility or mobilized this visit?: No 08/31/18 12:33 Consult to Urology [CONS] Routine Consulting Provider: Urology Gilma Reason for Consult: hematuria/BPH Time Notified: 12:34 Call Completed: Yes Discharging clinician: Khoi Chang Anticipated date of discharge: 09/02/18 Exam Vital Signs, Last 4 Hours Temp Pulse Resp BP Pulse Ox 09/02/18 11:24 98.4 F 76 12 121/67 94 General: Present: Conversant, No Apparent Distress Cardiac: Present: Normal S1 and S2 Lungs: Present: Normal Breath Sounds Neuro: Present: Alert and responsive, No focal deficits noted Abdomen: Present: Soft, Non-tender Vascular: Present: Normal capillary refill, Surgical incisions (incisions clean and dry without erythema or drainage). Absent: Cyanosis, Edema Skin: Present: No rashes noted on visualized skin - Patient Status Overall status at discharge: patient is progressing back to baseline - Diet and Activity Activity: as per physical therapy, increase activity as tolerated Diet: diabetic diet
[2018-09-01 04:39] LABS: Hematocrit 25.6 % (37.5-50.1); Hemoglobin 8.5 g/dL (12.9-16.9); Mean Corpuscular HGB Conc 33.2 g/dL (31.6-35.5); Mean Corpuscular Hemoglobin 31.4 pg (28.0-33.3); Mean Corpuscular Volume 94.5 fL (83.0-100.0); Mean Platelet Volume 10.7 fL (9.4-12.4); Platelet Count 123 K/mcL (140-400); Red Blood Count 2.71 M/mcL (4.19-5.50); Red Cell Distribution Width 12.8 % (11.5-14.5)
[2018-09-01 05:02] LABS: Calcium 7.9 mg/dL (8.6-10.3); Potassium 4.5 mEq/L (3.5-5.1)
[2018-09-01] MEDS: *HR* HYDROcodone/Acet 5/325 mg TABLET PO PRN ×3 (06:12→22:34)
--- NOTE | 2018-09-01 08:00 | Urology Progress Note ---
<Kandy Forte N - Last Filed: 09/01/18 07:57> Date of Encounter: 09/01/18 Time of Encounter: 07:58 - Assessment and Plan (1) Hematuria Status: Acute Assessment and plan: Patient is an 88-year-old male who presents with a history of gross hematuria. Patient is 2 days status post abdominal aortic aneurysm repair and doing well. CBI may continue to be titrated down as long as urine remains clear. If any sign of catheter obstruction or increased sediment, patient may benefit from hand irrigation. Qualifiers: Hematuria type: gross Qualified Code(s): R31.0 - Gross hematuria Progress Note Subjective: no new complaints Narrative: Patient seen and examined sitting upright in bed in no apparent distress. Patient denies feeling of obstruction of catheter or catheter discomfort. Patient is tolerating normal diet. Patient denies any new concerns. CBI is very slow flow with transparent orange pink urine in the tubing. Objective Initial Vital Signs Temp Pulse Resp BP Pulse Ox 97.7 F 98 18 155/69 98 08/30/18 06:32 08/30/18 06:32 08/30/18 06:32 08/30/18 06:32 08/30/18 06:32 - General physical appearance Present: well developed, no distress, no pain - Respiratory Present: normal expansion, normal respiratory effort - Abdomen Present: soft, non tender - Genitourinary Present: other (estrella catheter indwelling draining orange-pink tinge urine into bedside bag; CBI very slow flow ) - Integumentary Present: no rash, no abnormal pigmentation - Musculoskeletal Present: normal posture - Psychiatric Present: oriented to time, oriented to person, oriented to place, speech is normal, memory intact - Labs 09/01/18 04:14 09/01/18 04:14 Diabetes panel 09/01/18 Range/Units 04:14 Sodium 134 L (136-145) mEq/L Potassium 4.5 (3.5-5.1) mEq/L Chloride 104 (98-107) mEq/L Carbon Dioxide 22 L (23-29) mEq/L BUN 41 H (8-23) mg/dL Creatinine 2.03 H (0.70-1.30) mg/dL Glucose 379 H (70-105) mg/dL Calcium 7.9 L (8.6-10.3) mg/dL Calcium panel 09/01/18 Range/Units 04:14 Calcium 7.9 L (8.6-10.3) mg/dL Pituitary panel 09/01/18 Range/Units 04:14 Sodium 134 L (136-145) mEq/L Potassium 4.5 (3.5-5.1) mEq/L Chloride 104 (98-107) mEq/L Carbon Dioxide 22 L (23-29) mEq/L BUN 41 H (8-23) mg/dL Creatinine 2.03 H (0.70-1.30) mg/dL Glucose 379 H (70-105) mg/dL Calcium 7.9 L (8.6-10.3) mg/dL Adrenal panel 09/01/18 Range/Units 04:14 Sodium 134 L (136-145) mEq/L Potassium 4.5 (3.5-5.1) mEq/L Chloride 104 (98-107) mEq/L Carbon Dioxide 22 L (23-29) mEq/L BUN 41 H (8-23) mg/dL Creatinine 2.03 H (0.70-1.30) mg/dL Glucose 379 H (70-105) mg/dL Calcium 7.9 L (8.6-10.3) mg/dL Consult Discharge Plan - Plan Instructions: Peripheral Vascular Disorders (DC), Anemia (GEN) [facility]errals: [facility] [Primary Care Provider] - 09/09/18 11:00 am Khoi Merlos MD [Partnered Physician] - 09/09/18 1:30 pm Khoi Chang MD [Partnered Physician] - 09/14/18 1:30 pm <Khoi Merlos - Last Filed: 09/03/18 07:32> Date of Encounter: 09/03/18 - Assessment and Plan (1) Hematuria Status: Acute Assessment and plan: seen in conjunction with PA. Agree with notes and plan. urine has cleared Qualifiers: Hematuria type: gross Qualified Code(s): R31.0 - Gross hematuria Objective Initial Vital Signs Temp Pulse Resp BP Pulse Ox 97.7 F 98 18 155/69 98 08/30/18 06:32 08/30/18 06:32 08/30/18 06:32 08/30/18 06:32 08/30/18 06:32 - Labs 09/02/18 03:09 09/02/18 03:09
[2018-09-01] MEDS: Cholecalciferol (D-3) 1,000 UNIT TABLET PO SCH (08:41)
[2018-09-01] MEDS: Multivit/Ca/Min/Fe/FA 1 TAB TABLET PO SCH (08:41)
[2018-09-01] MEDS: Ascorbic Acid 500 MG TABLET PO SCH (08:42)
[2018-09-01] MEDS: Insulin LISPRO 300 UNITS/3 ML VIAL SQ SCH ×3 (08:42→17:39)
[2018-09-01] MEDS ORDERED: 0.9 % Sodium Chloride 500 ML IVC ONE (16:56)
--- NOTE | 2018-09-01 16:58 | Vascular/Endovas Progress Note ---
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 His wounds are healing well. He denies any abdominal, flank or back pain. He is tolerating a diet. Qualifiers: Presence of rupture: without rupture Qualified Code(s): I71.4 - Abdominal aortic aneurysm, without rupture (2) Chronic anemia Current Visit: Yes Status: Chronic The patient has chronic anemia. He is hemodynamically stable without evidence of ongoing blood loss. His hemoglobin is stable today. (3) Hematuria Current Visit: Yes Status: Acute Bladder irrigation appears to be clearing Qualifiers: Hematuria type: gross Qualified Code(s): R31.0 - Gross hematuria (4) CKD (chronic kidney disease), stage III Current Visit: No Status: Chronic The patient has chronic kidney disease stage III with dehydration. His creatinine is increased today. He will be given intravenous fluid bolus and given intravenous hydration overnight. (5) Type 2 diabetes mellitus Current Visit: No Status: Chronic Patient remains hyperglycemic. His insulin sliding scale will be increased. Qualifiers: Diabetes mellitus half-way insulin use: without half-way use Diabetes mellitus complication status: without complication Qualified Code(s): E11.9 - Type 2 diabetes mellitus without complications (6) CAD (coronary artery disease) Current Visit: No Status: Acute Qualifiers: Coronary Disease-Associated Artery/Lesion type: [place] artery [place] vs. transplanted heart: [place] heart Associated angina: without angina Qualified Code(s): I25.10 - Atherosclerotic heart disease of [place] coronary artery without angina pectoris - Subjective Interval history: The patient is without complaints today. He reports adequate pain control. He reports that his urine is clearing up. He denies chest or shortness of breath. He is tolerating a diet. Vital Signs, Last 4 Hours Temp Pulse Resp BP Pulse Ox 09/01/18 15:31 98.0 F 95 17 107/55 94 - Physical Examination General: Present: Conversant Cardiac: Present: Normal S1 and S2 Lungs: Present: Normal Breath Sounds Neuro: Present: Alert and responsive, No focal deficits noted Vascular: Present: Normal capillary refill, Surgical incisions (Clean, dry and intact without erythema or drainage, no hematoma). Absent: Edema Abdomen: Present: Soft, Non-tender. Absent: Masses Skin: Present: No rashes noted on visualized skin Results 09/01/18 04:14 09/01/18 04:14 Lab Results, Last 24 hours 09/01/18 09/01/18 04:14 04:14 WBC 12.9 H Hgb 8.5 L Hct 25.6 L Plt Count 123 L Sodium 134 L Potassium 4.5 Chloride 104 Carbon Dioxide 22 L BUN 41 H Creatinine 2.03 H Glucose 379 H Calcium 7.9 L Consult Discharge Plan - Plan Referrals: JUAN,PCP [Primary Care Provider] - 09/09/18 11:00 am Khoi Chang MD [Partnered Physician] - 09/14/18 1:30 pm
[2018-09-01] MEDS ORDERED: 0.9 % Sodium Chloride 1,000 ML IVC SCH (17:00)
[2018-09-01] MEDS ORDERED: Insulin LISPRO 300 UNITS/3 ML VIAL SQ SCH ×2 (17:02→17:04)
[2018-09-01] MEDS: Gabapentin 100 MG CAPSULE PO PRN (22:34)
[2018-09-02 03:33] LABS: Basophils % 0.2 %; Eosinophils # 0.2 K/mcL (0.0-0.6); Eosinophils % 2.1 %; Hematocrit 25.6 % (37.5-50.1); Hemoglobin 8.3 g/dL (12.9-16.9); Immature Granulocytes % 0.4 % (0-4); Lymphocytes # 1.8 K/mcL (0.6-4.6); Lymphocytes % 19.3 %; Mean Corpuscular HGB Conc 32.4 g/dL (31.6-35.5); Mean Corpuscular Hemoglobin 30.5 pg (28.0-33.3); Mean Corpuscular Volume 94.1 fL (83.0-100.0); Mean Platelet Volume 10.8 fL (9.4-12.4); Monocytes # 0.7 K/mcL (0.0-1.3); Monocytes % 6.9 %; Neutrophils # 6.7 K/mcL (1.6-8.9); Platelet Count 120 K/mcL (140-400); Red Blood Count 2.72 M/mcL (4.19-5.50); Red Cell Distribution Width 13.1 % (11.5-14.5); Segmented Neutrophils % 71.1 %
[2018-09-02 03:53] LABS: Calcium 8.1 mg/dL (8.6-10.3); Potassium 4.7 mEq/L (3.5-5.1)
[2018-09-02] MEDS: *HR* HYDROcodone/Acet 5/325 mg TABLET PO PRN ×2 (05:51→12:06)
--- NOTE | 2018-09-02 08:20 | Urology Progress Note ---
Date of Encounter: 09/02/18 Time of Encounter: 08:18 - Assessment and Plan (1) Hematuria Current Visit: Yes Status: Acute Assessment and plan: Patient is an 88-year-old male who is 3 days postoperative from abdominal aortic aneurysm repair. Patient presented with hematuria following catheter placement and anticoagulation. Anticoagulants of been held, and urine is improving. Hemoglobin and hematocrit are stabilized. Instructed nurse to discontinue CBI and to keep current catheter in place. Catheter plug and catheter care instructions to be given by nursing staff. I explained that we will proceed with a voiding trial next week in our office to remove Mclean catheter at that time. Patient may resume anticoagulation as per cardiovascular team. Qualifiers: Hematuria type: gross Qualified Code(s): R31.0 - Gross hematuria Progress Note Subjective: no new complaints Narrative: Patient is an 88-year-old male who is 3 days postoperative from abdominal aortic aneurysm repair who presents with hematuria folllowing anticoagulation and catheter placement. Patient seen and examined sitting upright in bed in no apparent distress. Patient denies catheter discomfort or feeling of obstruction. Patient is tolerating normal diet. Urine remains unchanged from yesterday, as patient has only gone through 1 CBI bag in the past 2 days. Objective Initial Vital Signs Temp Pulse Resp BP Pulse Ox 97.7 F 98 18 155/69 98 08/30/18 06:32 08/30/18 06:32 08/30/18 06:32 08/30/18 06:32 08/30/18 06:32 - General physical appearance Present: well developed, no distress, no pain - Respiratory Present: normal expansion, normal respiratory effort - Abdomen Present: soft, non tender - Genitourinary Urine Appearance: Present: Clear (urine is transparent orange-pink in tubing ) - Integumentary Present: no rash, no abnormal pigmentation - Musculoskeletal Present: normal gait - Psychiatric Present: oriented to time, oriented to person, oriented to place, speech is normal, memory intact - Labs 09/02/18 03:09 09/02/18 03:09 Diabetes panel 09/02/18 Range/Units 03:09 Sodium 134 L (136-145) mEq/L Potassium 4.7 (3.5-5.1) mEq/L Chloride 108 H (98-107) mEq/L Carbon Dioxide 21 L (23-29) mEq/L BUN 45 H (8-23) mg/dL Creatinine 1.98 H (0.70-1.30) mg/dL Glucose 250 H (70-105) mg/dL Calcium 8.1 L (8.6-10.3) mg/dL Calcium panel 09/02/18 Range/Units 03:09 Calcium 8.1 L (8.6-10.3) mg/dL Pituitary panel 09/02/18 Range/Units 03:09 Sodium 134 L (136-145) mEq/L Potassium 4.7 (3.5-5.1) mEq/L Chloride 108 H (98-107) mEq/L Carbon Dioxide 21 L (23-29) mEq/L BUN 45 H (8-23) mg/dL Creatinine 1.98 H (0.70-1.30) mg/dL Glucose 250 H (70-105) mg/dL Calcium 8.1 L (8.6-10.3) mg/dL Adrenal panel 09/02/18 Range/Units 03:09 Sodium 134 L (136-145) mEq/L Potassium 4.7 (3.5-5.1) mEq/L Chloride 108 H (98-107) mEq/L Carbon Dioxide 21 L (23-29) mEq/L BUN 45 H (8-23) mg/dL Creatinine 1.98 H (0.70-1.30) mg/dL Glucose 250 H (70-105) mg/dL Calcium 8.1 L (8.6-10.3) mg/dL Consult Discharge Plan - Plan Referrals: AL,PCP [Primary Care Provider] - 09/09/18 11:00 am Khoi Chang MD [Partnered Physician] - 09/14/18 1:30 pm
[2018-09-02] MEDS: Multivit/Ca/Min/Fe/FA 1 TAB TABLET PO SCH (09:28)
[2018-09-02] MEDS: Insulin LISPRO 300 UNITS/3 ML VIAL SQ SCH ×2 (09:29→12:08)
[2018-09-02] MEDS: Ascorbic Acid 500 MG TABLET PO SCH (09:29)
[2018-09-02] MEDS: Cholecalciferol (D-3) 1,000 UNIT TABLET PO SCH (09:29)
[2018-09-02 11:27] VITALS: BP 121/67
--- NOTE | 2018-09-02 12:11 | Physician Discharge Referral ---
ExtendedCare Referral Info Transfer To: rehab Provider in Charge after Transfer: PCP Institutional Level of Care: Skilled - Diagnosis (1) AAA (abdominal aortic aneurysm) Priority: Primary Status: Chronic (2) Chronic anemia Priority: Secondary Status: Chronic (3) Hematuria Priority: Secondary Status: Acute (4) CKD (chronic kidney disease), stage III Priority: Secondary Status: Chronic (5) Type 2 diabetes mellitus Priority: Secondary Status: Chronic (6) CAD (coronary artery disease) Priority: Secondary Status: Acute Prognosis: Good Aware of Diagnosis: Patient Aware of Prognosis: Patient - Transfer Medications Home Medications: Levothyroxine Sodium [Tirosint] 125 mcg PO DAILY 03/16/16 [History] Cholecalciferol (D-3) [Vitamin D] 1,000 unit PO DAILY 06/14/17 [History] Multivitamin [Multivitamins] 1 each PO DAILY 06/14/17 [History] Ferrous Sulfate [Iron] 325 mg PO QPM 06/10/18 [History] Gabapentin [Neurontin] 100 mg PO HS PRN 06/10/18 [History] Ascorbic Acid [Vitamin C] 250 tab PO DAILY 08/30/18 [History] Atorvastatin Calcium [Lipitor] 40 mg PO DAILY 08/30/18 [History] Enoxaparin [Lovenox] 100 mg SQ DAILY PRN 08/30/18 [History] Metoprolol [Lopressor] 12.5 mg PO BID 08/30/18 [History] Terazosin [Hytrin] 1 mg PO HS 08/30/18 [History] Warfarin [Coumadin] 3 mg PO TUTHSA 08/30/18 [History] Warfarin [Coumadin] 4 mg PO SUMOWEFR 08/30/18 [History] Allergies/Adverse Reactions: 3 Allergy/AdvReac Type Severity Reaction Status Date / Time Oxycodone [From Percocet] Allergy Intermediate Itching Verified 08/30/18 07:36 Penicillins Allergy Intermediate Itching Verified 08/30/18 07:36 Sulfa (Sulfonamide Allergy Intermediate Itching Verified 08/30/18 07:36 Antibiotics) acetaminophen [From Percocet] Allergy See Verified 08/30/18 07:36 Comments - Respiratory Orders Smoking Cessation: Smoking cessation has been advised. For more information, call the [place] Tobacco Quit Line at 5-778-HLMW-NOW. - Ancillary Orders May use pressure relief devices daily prn, May go on NICHOLAS w/family/respon constitution party w /meds at nurse discretion PRN, May have alcoholic beverages, May consult with Dentist, Director Of Conservation, Fmd Teacher PRN - Advance Directives Living Will: No Power of Field Court Researcher for Health Care: No Code Status: Full Code - Mobility Orders Ambulate - Rehabiliation Orders Rehab Potential: Fair Rehab Orders: ROM Exercises, Evaluation for Physical Therapy, Evaluation for Occupational Therapy - Treatments Skin tear care topically daily PRN per policy, May check for fecal impaction rectally daily PRN, Fleet enema rectally every other day PRN cleansing purposes List/Other: Applied dry gauze to bilateral groin incisions daily for 7 days. CERTIFICATION: I certify that the transfer of the above named patient to an Extended Care Facility is necessary for the continuing treatment of the diagnosis listed. The above information is true and accurate reflection of patient's current condition. Confidential - Redisclosure prohibited without a patient's written consent.
== END 2018-09-02 13:28 | DRG 269 ==
LOC: SAMDAY 06:05 → 2NNU 11:55
PROVIDERS: ADMIT Surgery Vascular Surgery; ATTEND Surgery Vascular Surgery